=== PATIENT | female | born 1970 | race Caucasian/White ===

== ENCOUNTER 2022-10-07 11:01 | Outpatient (CLI) | payer OTHER, SELFPAY | END 2022-10-07 11:02 | disposition home or self-care (01) | PROVIDERS: PCP Nurse Practitioner Family; Visit Provider Nurse Practitioner Family | DX: Z00.00 Encounter for general adult medical examination without abnormal findings (principal); E03.9 Hypothyroidism, unspecified; Z13.6 Encounter for screening for cardiovascular disorders; Z13.1 Encounter for screening for diabetes mellitus; Z13.0 Encounter for screening for diseases of the blood and blood-forming organs and certain disorders involving the immune mechanism | CPT/HCPCS: 80061; 82947; 84443; 85025 ==

== ENCOUNTER 2022-12-09 09:05 | Outpatient (CLI) | payer OTHER, SELFPAY ==
--- NOTE | 2022-12-09 09:15 | MR_ITS ---
[facility] [address] [facility] [address] Phone:?[phone] Fax:?[phone] Referring Physician Information: Jyoti Mcghee [address] [facility] [address] Phone:?[phone] Fax:?[phone] Patient:Yassine Snow D.O.B:?1970 Sex:?Female Phone:?[phone] [facility] MRN:?[id number] Exam Date:?12/09/2022 EXAM: MRI of the LEFT HIP, without contrast CLINICAL: Female, 52 years old, with left hip pain. No reported specific known injury/,. INDICATION: Evaluate for labral tear versus other hip derangement etiology. PRIOR SURGERY: None reported. PLAIN FILMS: None available. COMPARISONS: No prior MRIs available. TECHNICAL: Using a 1.5T MR scanner: 3.0 mm?coronals: PD, T2 3.0 mm?sagittals: PD, T2 4.0 mm oblique?axials: PD 4.0 mm?axials: PDFS 5.0 mm?coronals: T1, STIR of pelvis including hips SEDATION: None. CONTRAST: None. IMPRESSION: 1. Approximately 5 mm longitudinal linear tear and deformity of the junction of anterior and anterosuperior labrum. 2. Borderline high volume hip combined with decreased cranial acetabular anteversion bordering retroversion is morphology with potential to contribute pincer mechanism component of femoroacetabular impingement (J[place] PAUL). 3. 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 4. No bone stress injuries. 5. No myotendinous abnormalities. FINDINGS: Hip joint: Effusion: Small towards moderate left hip joint effusion. Ganglion/paralabral cyst: None. Articular cartilage: Some articular cartilage signal intensity inhomogeneity of the anterior hip joint raises possibility of an element of chondromalacia, but without convincing full-thickness thinning/defect or subjacent reactive marrow edema. Loose bodies: None. Labrum: Approximately 1.5 cm longitudinal linear tear of base of the junction of anterior and anterosuperior labrum (oblique axial series 6, images 17-13; sagittal series 8, images 14 & 15). The posterosuperior labrum appears intact. Proximal femur: No femoral occult fracture, bone stress injury, marrow edema or osteonecrosis. No convincing femoral cam morphology. Based on oblique axial series 6, image 16 at approximately 9 o'clock anteriorly, the maximum femoral alpha angle measures 44?. Acetabulum: No subchondral cysts, periacetabular ossicles or marrow edema. Version: Decreased cranial acetabular anteversion borders on retroversion. Coverage: Left lateral center edge (CE) angle measures borderline elevated at approximately 39? (normal 25?-39?), midline coronal series 4, image 12. Ligamentum teres: Intact and unremarkable. Pelvis osseous structures: Sacrum: No stress/insufficiency fractures or marrow edema/pathology. Sacroiliac joints: No demonstrable sacroiliitis. Pubic rami: No stress/insufficiency fractures or marrow edema/pathology. Symphysis pubis: No ongoing osteitis pubis. AIIS: Superoinferior extent: At the level of the acetabular roof. Anterior extent: 18.5 mm anterior to the anterior mid-acetabular rim. Myotendinous structures: Gluteus abductors: No convincing insertional tendinopathy or tear of gluteus minimus or medius. Adductors: No demonstrable tendinopathy or strain/tear. Rectus abdominis: No demonstrable tear/strain. Pre-pubic aponeurotic complex: Intact, without evidence of common rectus abdominis-adductor longus aponeurosis or pubic plate lesion. Hamstrings: Intact semimembranosus, semitendinosus and biceps femoris tendons, without tendinopathy or tear. Flexors: Intact iliopsoas and rectus femoris, without strain/tear. External rotators: Intact, without demonstrable ischiofemoral impingement. Gluteal aponeurotic fascia and IT band: Unremarkable. Bursae: No demonstrable trochanteric, iliopsoas, or iliopectineal bursitis. Intrapelvic contents: Free fluid: No free fluid seen within the pelvis. Pelvic viscera: No discrete intrapelvic mass is identified. Lymph nodes: No pathologically enlarged lymphadenopathy. Neurovascular structures: No discrete cyst, mass or other compression upon the portions visualized of sciatic or femoral nerves. [facility] Electronically signed on 12/09/2022 7:01:00 PM by Cruz Carvajal M.D.
== END 2022-12-09 09:06 | disposition home or self-care (01) ==
LOC: MRI 09:06
PROVIDERS: PCP Nurse Practitioner Family; Visit Provider Nurse Practitioner Family
DX: M25.552 Pain in left hip (principal); S73.192A Other sprain of left hip, initial encounter; M94.252 Chondromalacia, left hip
CPT/HCPCS: 73721

== ENCOUNTER 2023-10-28 10:01 | Outpatient (CLI) | payer OTHER, SELFPAY | END 2023-10-28 10:02 | disposition home or self-care (01) | PROVIDERS: PCP Nurse Practitioner Family; Visit Provider Nurse Practitioner Family | DX: E03.9 Hypothyroidism, unspecified (principal) | CPT/HCPCS: 84443 ==

== ENCOUNTER 2024-10-29 10:46 | Outpatient (CLI) | payer BC, SELFPAY ==
[2024-10-29 13:42] LABS: Trichomonas No Trichomonas Seen (None Seen)
== END 2024-10-29 10:47 | disposition home or self-care (01) ==
PROVIDERS: PCP Nurse Practitioner Family; Visit Provider Nurse Practitioner Family
DX: Z00.00 Encounter for general adult medical examination without abnormal findings (principal); N89.8 Other specified noninflammatory disorders of vagina; E03.9 Hypothyroidism, unspecified; R07.89 Other chest pain
CPT/HCPCS: 80053; 80061; 84443; 85025; 87210

== ENCOUNTER 2024-12-18 08:28 | Outpatient (CLI) | payer BC, SELFPAY ==
--- NOTE | 2024-12-18 10:22 | P.ANES_ITS ---
Anesthesia Charges Start Date/Time Anesthesia Start Date: 12/18/24 Anesthesia Start Time: 09:56 Stop Date/Time Anesthesia Stop Date: 12/18/24 Anesthesia Stop Time: 10:20 Coding CPT Codes CPT Codes: QUE LWYumiko INTST NDSC NOS - 28242 ([id number]) P2 - PATIENT W/MILD SYST DISEASE, QX - GYRO COMPASS TESTER SVC W/ MD MED DIRECTION, QK - MECHANIC FIELD SERVICE 2-4 CNCRNT ANEDebi PROC
--- NOTE | 2024-12-18 10:22 | W.ANESCHARGE ---
Anesthesia Charges Start Date/Time Anesthesia Start Date: 12/18/24 Anesthesia Start Time: 09:56 Stop Date/Time Anesthesia Stop Date: 12/18/24 Anesthesia Stop Time: 10:20 Coding CPT Codes CPT Codes: QUE LWYumiko INTST NDSC NOS - 95620 ([id number]) P2 - PATIENT W/MILD SYST DISEASE, QX - CLINICAL TRIAL EDUCATOR SVC W/ MD MED DIRECTION, QK - LICENSED NUCLEAR CONTROL ROOM OPERATOR 2-4 CNCRNT ANEDebi PROC
--- NOTE | 2024-12-18 11:49 | P.ANES_ITS ---
Anesthesia Charges Start Date/Time Anesthesia Start Date: 12/18/24 Anesthesia Start Time: 09:56 Stop Date/Time Anesthesia Stop Date: 12/18/24 Anesthesia Stop Time: 10:20 Coding CPT Codes CPT Codes: QUE LWR INTST NDSC NOS - 71200 ([id number]) P2 - PATIENT W/MILD SYST DISEASE, QK - COLLECTIVE BARGAINING SPECIALIST 2-4 CNCRNT ANES PROC, QX - PRINCIPAL NETWORK ENGINEER SVC W/ MD MED DIRECTION
--- NOTE | 2024-12-18 11:49 | W.ANESCHARGE ---
Anesthesia Charges Start Date/Time Anesthesia Start Date: 12/18/24 Anesthesia Start Time: 09:56 Stop Date/Time Anesthesia Stop Date: 12/18/24 Anesthesia Stop Time: 10:20 Coding CPT Codes CPT Codes: QUE LWR INTST NDSC NOS - 85726 ([id number]) P2 - PATIENT W/MILD SYST DISEASE, QK - BIRD TENDER 2-4 CNCRNT ANES PROC, QX - SWING GRINDER SVC W/ MD MED DIRECTION
== END 2024-12-18 08:29 | disposition home or self-care (01) ==
PROVIDERS: PCP Nurse Practitioner Family; Visit Provider Surgery
DX: Z12.11 Encounter for screening for malignant neoplasm of colon (principal); D12.3 Benign neoplasm of transverse colon; Z86.0100 Personal history of colon polyps, unspecified
CPT/HCPCS: 00811; 00812; 45385; 88305; J2704

== ENCOUNTER 2025-01-02 12:50 | Outpatient (CLI) | payer BC, SELFPAY | END 2025-01-02 12:51 | disposition home or self-care (01) | LOC: RAD 12:51 | PROVIDERS: PCP Nurse Practitioner Family; Visit Provider Nurse Practitioner Family | DX: R07.89 Other chest pain (principal) | CPT/HCPCS: 93306 ==